=== PATIENT | female | born 1950 | race African-American/Black ===

== ENCOUNTER 2018-12-11 22:11 | Inpatient (IN) | payer BC, OTHER ==
[~2018-12-11] VITALS: Ht 166.4 cm; Wt 69.4 kg
[~2018-12-11 22:11] MED LIST: HYDR12.5; LOTRIL; LOVASTATIN; TICLID
[2018-12-11 22:19] VITALS: BP_SYST 117
[2018-12-11] MEDS ORDERED: NACL 0.9% 1,000 ML IV ONE (23:15)
[2018-12-12 00:01] LABS: BILIRUBIN,URINE NEGATIVE (NEGATIVE); BLOOD, URINE NEGATIVE (NEGATIVE); CLARITY/URINE CLEAR (CLEAR); COLOR,URINE YELLOW (YELLOW); GLUCOSE,URINE NEGATIVE (NEGATIVE); KETONES,URINE NEGATIVE (NEGATIVE); LEUKOCYTE ESTERASE ,URINE 1+ (NEGATIVE); NITRITE, URINE NEGATIVE (NEGATIVE); PH,URINE 6.5 (5.0-8.0); PROTEIN URINE NEGATIVE (NEGATIVE); UROBILINOGEN,URINE 0.2 (0.2-1.0)
[2018-12-12] MEDS ORDERED: PANT20TA2 PO (00:27)
[2018-12-12] MEDS ORDERED: AMLO1CAP2 PO (00:27)
[2018-12-12] MEDS ORDERED: LOVA20TA2 PO (00:27)
[2018-12-12] MEDS ORDERED: CLOP300T2 PO (00:27)
[2018-12-12] MEDS ORDERED: HYDR25TA4 PO (00:27)
[2018-12-12 00:28] LABS: BASOPHILS % (AUTO) 0.9 % (0.0-2.0); EOSINOPHILS # (AUTO) 0.1 K/uL (0.0-0.4); HEMATOCRIT 36.7 % (36-48); HEMOGLOBIN 11.8 g/dL (12.0-16.0); LYMPHOCYTES # (AUTO) 1.7 K/uL (1.0-5.5); LYMPHOCYTES % (AUTO) 31.1 % (20.5-51.5); MEAN CORPUSCULAR HEMOGLOBIN 25 pg (27-31); MEAN CORPUSCULAR HGB CONC 32 % (32-36); MEAN CORPUSCULAR VOLUME 78 fL (79.0-98.0); MONOCYTES # (AUTO) 0.5 K/uL (0.0-1.0); MONOCYTES % (AUTO) 9.7 % (1.7-9.3); NEUTROPHILS # (AUTO) 3.1 K/uL (1.8-7.7); NEUTROPHILS % (AUTO) 57.3 % (40.0-70.0); PLATELET COUNT (AUTO) 240 K/uL (130-430); RED BLOOD CELL COUNT(AUTO) 4.72 MIL/uL (4.2-6.2); WHITE BLOOD COUNT (AUTO) 5.4 K/uL (4.8-10.8)
[2018-12-12 00:34] LABS: BACTERIA,URINE RARE /HPF (None Seen); RBC,URINE 0-3 /HPF (0-3)
[2018-12-12 00:38] LABS: CALCIUM 8.4 mg/dL (8.4-11.0); CREATININE 0.74 mg/dL (0.55-1.30); POTASSIUM 3.3 mmol/L (3.5-5.1)
[2018-12-12 00:41] LABS: PROTHROMBIN TIME 10.2 SECS (9.5-12.5)
[2018-12-12 00:42] LABS: TOTAL BILIRUBIN 0.1 mg/dL (0.0-1.0)
[2018-12-12 01:13] VITALS: BP_SYST 136
[2018-12-12] MEDS: NACL 0.9% 1,000 ML IV SCH ×2 (05:35→13:50)
[2018-12-12 08:30] VITALS: BP_SYST 124
[2018-12-12] MEDS ORDERED: amLODIPine BESYLATE 5 MG TABLET PO SCH (09:00)
[2018-12-12] MEDS ORDERED: CLOPIDOGREL BISULFATE 75 MG TABLET PO SCH (09:00)
[2018-12-12] MEDS ORDERED: PANTOPRAZOLE SODIUM 40 MG TAB PO SCH (09:00)
[2018-12-12 12:00] VITALS: BP_SYST 125
[2018-12-12 15:09] VITALS: BP_SYST 123
[2018-12-12] MEDS ORDERED: ATORVASTATIN 10 MG TABLET PO SCH (18:00)
== END 2018-12-12 15:42 | disposition home or self-care (01) | DRG 312 ==
LOC: SED 22:11 → STU 12-12 00:30
PROVIDERS: ADMIT Internal Medicine Hospice and Palliative Medicine; ATTEND Internal Medicine Hospice and Palliative Medicine
DX: R55 Syncope and collapse (principal); I10 Essential (primary) hypertension; E78.5 Hyperlipidemia, unspecified; Z79.02 Long term (current) use of antithrombotics/antiplatelets; Z86.73 Personal history of transient ischemic attack (TIA), and cerebral infarction without residual deficits; Z88.0 Allergy status to penicillin; Z79.899 Other long term (current) drug therapy; Z85.3 Personal history of malignant neoplasm of breast; Z98.891 History of uterine scar from previous surgery
CPT/HCPCS: 36415; 70450-TC; 71045; 80053; 81000-TC; 84484; 85025; 85379; 85610-TC; 85730-TC; 87086; 93005; 93306; 93880; 96360; 99285; G0378; J7030